=== PATIENT | female | born 1970 | race Caucasian/White ===

== ENCOUNTER 2018-08-20 15:11 | Inpatient (IN) | payer MEDICAID ==
[2018-08-20] MEDS ORDERED: Ondansetron 4 MG Tab.DIS PO PRN (16:34)
[2018-08-20] MEDS: Sodium Chloride 0.9% 10 ML Syringe FLUSH PRN (17:39)
[2018-08-20] MEDS: methylPREDNISolone Sodium Succinate 125 MG/2 ML SDV IVPUSH SCH (17:40)
[2018-08-20] MEDS: Lactated Ringers 1,000 ML IV SCH (17:41)
--- NOTE | 2018-08-20 17:41 | PCM.HP ---
<Brittani Arnett - Last Filed: 08/20/18 18:10> H&P History of Present Illness - General Admit Problem/Dx: Admission Diagnosis/Problem Admission Diagnosis/Problem Pneumonia Elizabeth is a 48yoF with history of emyphesema, chronic bronchitis, HTN, s/p gastric bypass (and previously diabetic before surgery), IBS, bipolar affective disorder who is admitted from clinic today for shortness of breath. Patient reports onset of dry cough, congestion, and dyspnea 3-4weeks ago. She was subsequently seen in clinic, at which time she was advised to finish her course of prednisone, continue with 10mg Singulair once daily, and starton Spiriva, 1 inhalation daily. Since then, her symptoms have continued to progressively worsen,particularly in the last week,now noting significant shortness of breath both at rest and with exertion. Associated symptoms include wheezing, myalgias, subjective fevers/chills, diaphoresis, intermittent periorbital headaches, sinus pressure, bilateral otalgia, sore throat, hoarseness, and rib pain secondary to coughing. She has been taking Tylenol and Sudafed with temporary relief.Patient does not feel her COPD is controlled at baseline as she typically becomes short of breath by 3-4pm each day. She is also out of rescue inhalers at home because she needs them more frequently than supplied by her insurance.She does not use supplemental oxygen at home.She is a current smoker, normally 1 ppd, down to 6 cigarettesa dayin past three days. Also has extensive passive smoke exposure at home from several family members. Additionally, patient reports feeling increasingly fatigued with difficulty concentrating, decreased sleep, and worsening anxiety and depressive episodes. No suicidal or homicidal ideations. She has a history of anxiety, bipolar disorder, depression, and PTSD. She is currently onCymbalta, Lyrica and Lorazepam. CXR in clinic does show evidence of infiltrate of right lower lung base and there is likely also infiltrate on the left side as well. Troponin and basic metabolic panel are within normal limits. BNP is pending. We checked a CBC on admission which showed a slight elevation of white count to 13.2. The patient does not have history of heart failure. Source of Information: Patient History Limitations: Reports: No Limitations - Related Data Allergies/Adverse Reactions: Allergies Allergy/AdvReac Type Severity Reaction Status Date / Time aspirin Allergy Difficulty Verified 08/20/18 18:46 Breathing cefaclor [From Ceclor] Allergy Hives Verified 07/12/18 15:24 clarithromycin [From Biaxin] Allergy Anaphylactic Verified 07/12/18 15:24 Shock fluticasone Allergy Hives Verified 07/12/18 15:23 [From Advair Diskus] ibuprofen Allergy Hives Verified 07/12/18 15:22 latex Allergy Hives Verified 07/12/18 15:22 morphine Allergy Hives Verified 08/20/18 18:46 salmeterol Allergy Hives Verified 07/12/18 15:23 [From Advair Diskus] Home Medications: Home Meds Budesonide/Formoterol Fumarate [Symbicort 160-4.5 Mcg Inhaler] 1 puff IH BID [History] Cyclobenzaprine [Flexeril] 10 mg PO TID 07/12/18 [History] LORazepam [Ativan] 1 mg PO BID 07/12/18 [History] Montelukast [Singulair] 10 mg PO DAILY 07/12/18 [History] Omeprazole 20 mg PO DAILY 07/12/18 [History] DULoxetine [Cymbalta] 30 mg PO DAILY 08/20/18 [History] Pregabalin [Lyrica] 150 mg PO BID 08/20/18 [History] Tiotropium [Spiriva Handihaler] 1 inhaler IH DAILY 08/20/18 [History] Past Medical History Cardiovascular History: Reports: High Cholesterol, Hypertension Respiratory History: Reports: Bronchitis, Recurrent, COPD Gastrointestinal History: Reports: Irritable Bowel Syndrome Psychiatric History: Reports: ADD, Bipolar - Past Surgical History GI Surgical History: Reports: Bariatric Procedure Social & Family History - Family History Family Medical History: Noncontributory - Tobacco Use Smoking Status *Q: Current Some Day Smoker Years of Tobacco use: 31 Packs/Tins Daily: 0.2 Used Tobacco, but Quit: No Month/Year Tobacco Last Used: aug 20 Second Hand Smoke Exposure: Yes - Caffeine Use Caffeine Use: Reports: Coffee, Energy Drinks - Recreational Drug Use Recreational Drug Use: No H&P Review of Systems - Review of Systems: General: Reports: Fever, Chills, Weakness, Fatigue HEENT: Reports: Headaches, Sinus Congestion, Sore Throat Pulmonary: Reports: Shortness of Breath, Wheezing, Cough, Sputum Cardiovascular: Reports: Dyspnea on Exertion Gastrointestinal: Reports: No Symptoms Genitourinary: Reports: No Symptoms Musculoskeletal: Reports: Muscle Pain Skin: Reports: No Symptoms Psychiatric: Reports: No Symptoms Neurological: Reports: No Symptoms Exam - Exam Exam: See Below - Vital Signs Vital Signs: Last Vital Signs Temp 36.6 C 08/20/18 16:08 Pulse 102 H 08/20/18 16:08 Resp 20 08/20/18 16:08 BP 119/81 08/20/18 16:08 Pulse Ox 85 L 08/20/18 16:16 Weight: 141 lb 14.4 oz - Exam Quality Assessment: Supplemental Oxygen, DVT Prophylaxis General: Alert, Oriented, Cooperative HEENT: PERRLA, Conjunctiva Clear Lungs: Decreased Breath Sounds, Rales, Wheezing Cardiovascular: Regular Rhythm, Normal S1, Normal S2, Tachycardia GI/Abdominal Exam: Normal Bowel Sounds, Soft Back Exam: Normal Inspection, Full Range of Motion Extremities: Normal Inspection, Normal Range of Motion, No Pedal Edema Peripheral Pulses: 1+: Radial (L), Radial (R) Skin: Warm Neuro Extensive - Mental Status: Alert, Oriented x3 Psychiatric: Alert, Normal Affect - Patient Data Lab Results Last 24 hrs: Laboratory Results - last 24 hr 08/20/18 08/20/18 Range/Units 16:55 16:55 WBC 13.2 H (4.5-12.0) X10-3/uL RBC 5.92 H (3.23-5.20) x10(6)uL Hgb 14.5 (11.5-15.5) g/dL Hct 45.8 (30.0-51.3) % MCV 77.3 L (80-96) fL MCH 24.6 L (27.7-33.6) pg MCHC 31.8 L (32.2-35.4) g/dL RDW 16.7 H (11.5-15.5) % Plt Count 331 (125-369) X10(3)uL MPV 7.9 (7.4-10.4) fL Neut % (Auto) 61.3 (46-82) % Lymph % (Auto) 27.4 (13-37) % [place] % (Auto) 10.0 (4-12) % Eos % (Auto) 1 (1.0-5.0) % Baso % (Auto) 1 (0-2) % Neut # (Auto) 8.1 (1.6-8.3) # Lymph # (Auto) 3.6 (0.6-5.0) # [place] # (Auto) 1.3 (0.0-1.3) # Eos # (Auto) 0.1 (0.0-0.8) # Baso # (Auto) 0.1 (0.0-0.2) # Sodium 140 (135-145) mmol/L Potassium 3.5 (3.5-5.3) mmol/L Chloride 103 (100-110) mmol/L Carbon Dioxide 31 (21-32) mmol/L BUN 8 (7-18) mg/dL Creatinine 0.7 (0.55-1.02) mg/dL Est Cr Clr Drug Dosing 86.52 mL/min Estimated GFR (MDRD) > 60 (>60) BUN/Creatinine Ratio 11.4 (9-20) Glucose 88 (80-116) mg/dL Calcium 8.9 (8.6-10.2) mg/dL Total Bilirubin 0.4 (0.1-1.3) mg/dL AST 21 (5-25) IU/L ALT 28 (12-36) U/L Alkaline Phosphatase 136 H (56-112) IU/L Total Protein 7.4 (6.0-8.0) g/dL Albumin 3.4 L (3.5-5.2) g/dL Globulin 4.0 g/dL Albumin/Globulin Ratio 0.9 Result Diagrams: 08/20/18 16:55 08/20/18 16:55 - Problem List (1) Acute on chronic respiratory failure with hypoxia SNOMED Code(s): 90446732, 600220582 ICD Code: J96.21 - ACUTE AND CHRONIC RESPIRATORY FAILURE WITH HYPOXIA Status: Acute Current Visit: Yes (2) Pneumonia SNOMED Code(s): 386357864 ICD Code: J18.9 - PNEUMONIA, UNSPECIFIED ORGANISM Status: Acute Current Visit: Yes (3) COPD exacerbation SNOMED Code(s): 950551935 ICD Code: J44.1 - CHRONIC OBSTRUCTIVE PULMONARY DISEASE W (ACUTE) EXACERBATION Status: Acute Current Visit: Yes (4) Hypertension SNOMED Code(s): 29493889 ICD Code: I10 - ESSENTIAL (PRIMARY) HYPERTENSION Status: Acute Current Visit: Yes (5) Emphysema of lung SNOMED Code(s): 46487737 ICD Code: J43.9 - EMPHYSEMA, UNSPECIFIED Status: Acute Current Visit: Yes (6) Irritable bowel syndrome (IBS) SNOMED Code(s): 17773597 ICD Code: K58.9 - IRRITABLE BOWEL SYNDROME WITHOUT DIARRHEA Status: Acute Current Visit: Yes (7) Hypoxemia SNOMED Code(s): 068866468 ICD Code: R09.02 - HYPOXEMIA Status: Acute Current Visit: No Problem List Initiated/Reviewed/Updated: Yes Orders Last 24hrs: Active Orders 24 hr Category Date Time Status Patient Status [ADT] Routine ADT 08/20/18 16:35 Active Oxygen Therapy [RC] ASDIRECTED Care 08/20/18 16:16 Active Oxygen Therapy [RC] PRN Care 08/20/18 16:35 Active RT Aerosol Therapy [RC] ASDIRECTED Care 08/20/18 16:39 Active Up ad Steffany [RC] ASDIRECTED Care 08/20/18 16:34 Active VTE/DVT Education [RC] Per Unit Routine Care 08/20/18 16:35 Active Vital Signs [RC] Q4H Care 08/20/18 16:35 Active Regular Diet [DIET] Diet 08/20/18 Dinner Active CULTURE BLOOD [BC] Urgent Lab 08/20/18 16:55 Received CULTURE BLOOD [BC] Urgent Lab 08/20/18 17:00 Received UA W/MICROSCOPIC [URIN] Routine Lab 08/20/18 16:34 Ordered Albuterol/Ipratropium [DuoNeb 3.0-0.5 MG/3 ML] Med 08/20/18 21:00 Active 3 ml NEB QIDRT Enoxaparin [Lovenox] Med 08/20/18 16:45 Pending 40 mg SUBCUT Q24H Lactated Ringers [Ringers, Lactated] 1,000 ml Med 08/20/18 16:45 Active IV ASDIRECTED Levofloxacin/Dextrose 5%-Water [Levaquin in D5W 750 MG/ Med 08/20/18 17:00 Active 150 ML] 750 mg Premix Bag 1 bag IV Q24H Sodium Chloride 0.9% [Saline Flush] Med 08/20/18 16:34 Active 10 ml FLUSH ASDIRECTED PRN methylPREDNISolone Sod Succ [Solu-MEDROL] Med 08/20/18 16:45 Active 125 mg IVPUSH Q12H Blood Culture x2 Reflex Set [OM.PC] Urgent Oth 08/20/18 16:34 Ordered Peripheral IV Insertion Adult [OM.PC] Routine Oth 08/20/18 16:34 Ordered Sequential Compression Device [OM.PC] Per Unit Routine Oth 08/20/18 16:36 Ordered Resuscitation Status Routine Resus Stat 08/20/18 16:34 Ordered Medication Orders Albuterol/Ipratropium (Duoneb 3.0-0.5 Mg/3 Ml) 3 ml NEB QIDRT [facility] Enoxaparin Sodium (Lovenox) 40 mg SUBCUT Q24H [facility] Lactated Ringer's (Ringers, Lactated) 1,000 mls @ 125 mls/hr IV ASDIRECTED [facility] Levofloxacin/Dextrose 750 mg/ (Premix) 150 mls @ 100 mls/hr IV Q24H [facility] Methylprednisolone Sodium Succinate (Solu-Medrol) 125 mg IVPUSH Q12H [facility] Sodium Chloride (Saline Flush) 10 ml FLUSH ASDIRECTED PRN PRN Reason: Keep Vein Open Assessment/Plan Comment:: 1. Admit to inpatient 2. We are treating this patient for COPD exacerbation as well as a bilateral community acquired pneumonia. We will treat her with IV levaquin, albuterol nebulization and IV steroids. Oxygen supplementation with nasal cannula and will wean as tolerated. She should use incentive spirometer. 3. EKG from clinic was reviewed and showed tachycardia but no evidence of ST elevation. Negative troponin. 4. Low clinical suspicion for PE 5. We will order some basic labs, blood cultures, urinalysis and also start the patient on IV fluids. We will test for influenza. 6. Up and ad steffany 7. DVT prophylaxis with Lovenox. Regular diet. <Macho Jack - Last Filed: 08/21/18 06:18> H&P History of Present Illness - General Date of Service: 08/20/18 Admit Problem/Dx: Admission Diagnosis/Problem Admission Diagnosis/Problem Pneumonia H&P Review of Systems - Review of Systems: Review Of Systems: See Below Exam - Exam Exam: See Below - Vital Signs Vital Signs: Last Vital Signs Temp 98.2 F 08/21/18 04:00 Pulse 84 08/21/18 04:00 Resp 18 08/21/18 04:00 BP 116/68 08/21/18 04:00 Pulse Ox 91 L 08/21/18 04:00 - Patient Data Lab Results Last 24 hrs: Laboratory Results - last 24 hr 08/20/18 08/20/18 08/20/18 Range/Units 16:55 16:55 19:00 WBC 13.2 H (4.5-12.0) X10-3/uL RBC 5.92 H (3.23-5.20) x10(6)uL Hgb 14.5 (11.5-15.5) g/dL Hct 45.8 (30.0-51.3) % MCV 77.3 L (80-96) fL MCH 24.6 L (27.7-33.6) pg MCHC 31.8 L (32.2-35.4) g/dL RDW 16.7 H (11.5-15.5) % Plt Count 331 (125-369) X10(3)uL MPV 7.9 (7.4-10.4) fL Neut % (Auto) 61.3 (46-82) % Lymph % (Auto) 27.4 (13-37) % [place] % (Auto) 10.0 (4-12) % Eos % (Auto) 1 (1.0-5.0) % Baso % (Auto) 1 (0-2) % Neut # (Auto) 8.1 (1.6-8.3) # Lymph # (Auto) 3.6 (0.6-5.0) # [place] # (Auto) 1.3 (0.0-1.3) # Eos # (Auto) 0.1 (0.0-0.8) # Baso # (Auto) 0.1 (0.0-0.2) # Sodium 140 (135-145) mmol/L Potassium 3.5 (3.5-5.3) mmol/L Chloride 103 (100-110) mmol/L Carbon Dioxide 31 (21-32) mmol/L BUN 8 (7-18) mg/dL Creatinine 0.7 (0.55-1.02) mg/dL Est Cr Clr Drug Dosing 86.52 mL/min Estimated GFR (MDRD) > 60 (>60) BUN/Creatinine Ratio 11.4 (9-20) Glucose 88 (80-116) mg/dL Calcium 8.9 (8.6-10.2) mg/dL Total Bilirubin 0.4 (0.1-1.3) mg/dL AST 21 (5-25) IU/L ALT 28 (12-36) U/L Alkaline Phosphatase 136 H (56-112) IU/L Total Protein 7.4 (6.0-8.0) g/dL Albumin 3.4 L (3.5-5.2) g/dL Globulin 4.0 g/dL Albumin/Globulin Ratio 0.9 Urine Color Yellow (YELLOW) Urine Appearance Clear (CLEAR) Urine pH 6.0 (5.0-6.5) Ur Specific [place] 1.010 (1.010-1.025) Urine Protein Negative (NEGATIVE) mg/dL Urine Glucose (UA) Normal (NEGATIVE) mg/dL Urine Ketones Negative (NEGATIVE) mg/dL Urine Occult Blood Negative (NEGATIVE) Urine Nitrite Negative (NEGATIVE) Urine Bilirubin Negative (NEGATIVE) Urine Urobilinogen 1 H (NEGATIVE) mg/dL Ur Leukocyte Esterase Small H (NEGATIVE) Urine RBC 0-5 (0) Urine WBC 10-20 H (0) Ur Squamous Epith Cells Moderate H (NS,R,O) Urine Bacteria Moderate H (NS) Result Diagrams: 08/20/18 16:55 08/20/18 16:55 Malcolm Results Last 24 hrs: Microbiology 08/20/18 22:10 Influenza Type A Antigen Screen - Final Nasal, Unspecified NEGATIVE INFLUENZA A VIRUS AG Influenza Type B Antigen Screen - Final NEGATIVE INFLUENZA B VIRUS AG - Problem List (1) Asthma SNOMED Code(s): 989174988 ICD Code: J45.909 - UNSPECIFIED ASTHMA, UNCOMPLICATED Status: Acute Current Visit: Yes (2) Palliative care status SNOMED Code(s): 491958275 ICD Code: Z51.5 - ENCOUNTER FOR PALLIATIVE CARE Status: Acute Current Visit: Yes (3) COPD exacerbation SNOMED Code(s): 043461210 ICD Code: J44.1 - CHRONIC OBSTRUCTIVE PULMONARY DISEASE W (ACUTE) EXACERBATION Status: Acute Current Visit: Yes (4) Pneumonia SNOMED Code(s): 824659558 ICD Code: J18.9 - PNEUMONIA, UNSPECIFIED ORGANISM Status: Acute Current Visit: Yes Problem List Initiated/Reviewed/Updated: Yes Orders Last 24hrs: Active Orders 24 hr Category Date Time Status Patient Status [ADT] Routine ADT 08/20/18 16:35 Active Oxygen Therapy [RC] ASDIRECTED Care 08/20/18 16:16 Active Oxygen Therapy [RC] PRN Care 08/20/18 16:35 Active RT Aerosol Therapy [RC] ASDIRECTED Care 08/20/18 16:39 Active RT Aerosol Therapy [RC] ASDIRECTED Care 08/20/18 21:03 Active Up ad Steffany [RC] ASDIRECTED Care 08/20/18 16:34 Active VTE/DVT Education [RC] Per Unit Routine Care 08/20/18 16:35 Active Vital Signs [RC] Q4H Care 08/20/18 16:35 Active Regular Diet [DIET] Diet 08/20/18 Dinner Active CULTURE BLOOD [BC] Urgent Lab 08/20/18 16:55 Received CULTURE BLOOD [BC] Urgent Lab 08/20/18 17:00 Received Acetaminophen [Tylenol Extra Strength] Med 08/20/18 22:33 Active 500 mg PO Q6H PRN Albuterol/Ipratropium [DuoNeb 3.0-0.5 MG/3 ML] Med 08/20/18 21:00 Active 3 ml NEB QIDRT Budesonide [Pulmicort] Med 08/20/18 21:00 Active 0.5 mg NEB BIDRT Enoxaparin [Lovenox] Med 08/20/18 18:00 Active 40 mg SUBCUT Q24H Lactated Ringers [Ringers, Lactated] 1,000 ml Med 08/20/18 16:45 Active IV ASDIRECTED Levofloxacin/Dextrose 5%-Water [Levaquin in D5W 750 MG/ Med 08/20/18 17:00 Active 150 ML] 750 mg Premix Bag 1 bag IV Q24H Pantoprazole [ProTONIX] Med 08/21/18 07:30 Active 40 mg PO ACBREAKFAST Sodium Chloride 0.9% [Saline Flush] Med 08/20/18 16:34 Active 10 ml FLUSH ASDIRECTED PRN methylPREDNISolone Sod Succ [Solu-MEDROL] Med 08/20/18 16:45 Active 125 mg IVPUSH Q12H Blood Culture x2 Reflex Set [OM.PC] Urgent Oth 02/06/19 16:34 Ordered Peripheral IV Insertion Adult [OM.PC] Routine Oth 08/20/18 16:34 Ordered Sequential Compression Device [OM.PC] Per Unit Routine Oth 08/20/18 16:36 Ordered Resuscitation Status Routine Resus Stat 08/20/18 16:34 Ordered Medication Orders Acetaminophen (Tylenol Extra Strength) 500 mg PO Q6H PRN PRN Reason: pain Last Admin: 08/20/18 23:30 Dose: 500 mg Albuterol/Ipratropium (Duoneb 3.0-0.5 Mg/3 Ml) 3 ml NEB QIDRT [facility] Last Admin: 08/20/18 21:11 Dose: 3 ml Budesonide (Pulmicort) 0.5 mg NEB BIDRT [facility] Last Admin: 08/20/18 21:22 Dose: 0.5 mg Enoxaparin Sodium (Lovenox) 40 mg SUBCUT Q24H [facility] Last Admin: 08/20/18 21:33 Dose: 40 mg Lactated Ringer's (Ringers, Lactated) 1,000 mls @ 125 mls/hr IV ASDIRECTED [facility] Last Admin: 08/21/18 03:09 Dose: 125 mls/hr Infusion: 08/21/18 01:41 Dose: 125 mls/hr Admin: 08/20/18 17:41 Dose: 125 mls/hr Levofloxacin/Dextrose 750 mg/ (Premix) 150 mls @ 100 mls/hr IV Q24H [facility] Last Admin: 08/20/18 17:48 Dose: 100 mls/hr Methylprednisolone Sodium Succinate (Solu-Medrol) 125 mg IVPUSH Q12H [facility] Last Admin: 08/21/18 04:27 Dose: 125 mg Admin: 08/20/18 17:40 Dose: 125 mg Pantoprazole Sodium (Protonix) 40 mg PO ACBREAKFAST [facility] Sodium Chloride (Saline Flush) 10 ml FLUSH ASDIRECTED PRN PRN Reason: Keep Vein Open Last Admin: 08/20/18 17:39 Dose: 10 ml Assessment/Plan Comment:: I have seen this patient with the resident and agree.
[2018-08-20] MEDS: Levofloxacin/Dextrose 5%-Water 750 MG in Premix Bag 1 BAG IV SCH (17:48)
[2018-08-20] MEDS ORDERED: LORazepam 1 MG Tab PO ONE (21:00)
[2018-08-20] MEDS ORDERED: Pregabalin 75 MG Cap PO ONE (21:00)
[2018-08-20] MEDS ORDERED: Gabapentin 400 MG Cap PO SCH (21:00)
[2018-08-20] MEDS: Albuterol/Ipratropium 3.0-0.5 MG/3 ML Neb Soln NEB SCH (21:11)
[2018-08-20] MEDS: Budesonide 0.5 MG/2 ML Neb Susp NEB SCH (21:22)
[2018-08-20] MEDS: Enoxaparin 40 MG/0.4 ML Syringe SUBCUT SCH (21:33)
[2018-08-20] MEDS ORDERED: Cyclobenzaprine 10 MG Tab PO ONE (22:33)
[2018-08-20] MEDS: Acetaminophen 500 MG Tab PO PRN (23:30)
[2018-08-21] MEDS: Lactated Ringers 1,000 ML IV SCH (03:09)
[2018-08-21] MEDS: methylPREDNISolone Sodium Succinate 125 MG/2 ML SDV IVPUSH SCH (04:27)
[2018-08-21] MEDS: Albuterol/Ipratropium 3.0-0.5 MG/3 ML Neb Soln NEB SCH ×4 (07:06→20:51)
[2018-08-21] MEDS: Budesonide 0.5 MG/2 ML Neb Susp NEB SCH ×2 (07:13→20:51)
[2018-08-21] MEDS: Pantoprazole 40 MG Tab.CR PO SCH (07:53)
--- NOTE | 2018-08-21 09:09 | PCM.PN ---
- General Info Date of Service: 08/21/18 Admission Dx/Problem (Free Text): Patient states her breathing is better as long as she has the oxygen on. She has a nonproductive cough. He denies fevers or chills or wheezing. - Patient Data Vitals - Most Recent: Last Vital Signs Temp 98.2 F 08/21/18 04:00 Pulse 84 08/21/18 04:00 Resp 18 08/21/18 04:00 BP 116/68 08/21/18 04:00 Pulse Ox 91 L 08/21/18 04:00 Weight - Most Recent: 141 lb 14.4 oz I&O - Last 24 Hours: Intake & Output 08/20/18 08/21/18 08/21/18 22:59 06:59 14:59 Intake Total 392 1020 Balance 392 1020 Lab Results Last 24 Hours: Laboratory Results - last 24 hr 08/20/18 08/20/18 08/20/18 Range/Units 16:55 16:55 19:00 WBC 13.2 H (4.5-12.0) X10-3/uL RBC 5.92 H (3.23-5.20) x10(6)uL Hgb 14.5 (11.5-15.5) g/dL Hct 45.8 (30.0-51.3) % MCV 77.3 L (80-96) fL MCH 24.6 L (27.7-33.6) pg MCHC 31.8 L (32.2-35.4) g/dL RDW 16.7 H (11.5-15.5) % Plt Count 331 (125-369) X10(3)uL MPV 7.9 (7.4-10.4) fL Neut % (Auto) 61.3 (46-82) % Lymph % (Auto) 27.4 (13-37) % [place] % (Auto) 10.0 (4-12) % Eos % (Auto) 1 (1.0-5.0) % Baso % (Auto) 1 (0-2) % Neut # (Auto) 8.1 (1.6-8.3) # Lymph # (Auto) 3.6 (0.6-5.0) # [place] # (Auto) 1.3 (0.0-1.3) # Eos # (Auto) 0.1 (0.0-0.8) # Baso # (Auto) 0.1 (0.0-0.2) # Sodium 140 (135-145) mmol/L Potassium 3.5 (3.5-5.3) mmol/L Chloride 103 (100-110) mmol/L Carbon Dioxide 31 (21-32) mmol/L BUN 8 (7-18) mg/dL Creatinine 0.7 (0.55-1.02) mg/dL Est Cr Clr Drug Dosing 86.52 mL/min Estimated GFR (MDRD) > 60 (>60) BUN/Creatinine Ratio 11.4 (9-20) Glucose 88 (80-116) mg/dL Calcium 8.9 (8.6-10.2) mg/dL Total Bilirubin 0.4 (0.1-1.3) mg/dL AST 21 (5-25) IU/L ALT 28 (12-36) U/L Alkaline Phosphatase 136 H (56-112) IU/L Total Protein 7.4 (6.0-8.0) g/dL Albumin 3.4 L (3.5-5.2) g/dL Globulin 4.0 g/dL Albumin/Globulin Ratio 0.9 Urine Color Yellow (YELLOW) Urine Appearance Clear (CLEAR) Urine pH 6.0 (5.0-6.5) Ur Specific [place] 1.010 (1.010-1.025) Urine Protein Negative (NEGATIVE) mg/dL Urine Glucose (UA) Normal (NEGATIVE) mg/dL Urine Ketones Negative (NEGATIVE) mg/dL Urine Occult Blood Negative (NEGATIVE) Urine Nitrite Negative (NEGATIVE) Urine Bilirubin Negative (NEGATIVE) Urine Urobilinogen 1 H (NEGATIVE) mg/dL Ur Leukocyte Esterase Small H (NEGATIVE) Urine RBC 0-5 (0) Urine WBC 10-20 H (0) Ur Squamous Epith Cells Moderate H (NS,R,O) Urine Bacteria Moderate H (NS) Malcolm Results Last 24 Hours: Microbiology 08/20/18 22:10 Influenza Type A Antigen Screen - Final Nasal, Unspecified NEGATIVE INFLUENZA A VIRUS AG Influenza Type B Antigen Screen - Final NEGATIVE INFLUENZA B VIRUS AG Med Orders - Current: Current Medications Acetaminophen (Tylenol Extra Strength) 500 mg PO Q6H PRN PRN Reason: pain Last Admin: 08/20/18 23:30 Dose: 500 mg Albuterol/Ipratropium (Duoneb 3.0-0.5 Mg/3 Ml) 3 ml NEB QIDRT [facility] Last Admin: 08/21/18 07:06 Dose: 3 ml Budesonide (Pulmicort) 0.5 mg NEB BIDRT [facility] Last Admin: 08/21/18 07:13 Dose: 0.5 mg Enoxaparin Sodium (Lovenox) 40 mg SUBCUT Q24H [facility] Last Admin: 08/20/18 21:33 Dose: 40 mg Lactated Ringer's (Ringers, Lactated) 1,000 mls @ 125 mls/hr IV ASDIRECTED [facility] Last Admin: 08/21/18 03:09 Dose: 125 mls/hr Levofloxacin/Dextrose 750 mg/ (Premix) 150 mls @ 100 mls/hr IV Q24H [facility] Last Admin: 08/20/18 17:48 Dose: 100 mls/hr Methylprednisolone Sodium Succinate (Solu-Medrol) 125 mg IVPUSH Q12H [facility] Last Admin: 08/21/18 04:27 Dose: 125 mg Pantoprazole Sodium (Protonix) 40 mg PO ACBREAKFAST [facility] Last Admin: 08/21/18 07:53 Dose: 40 mg Sodium Chloride (Saline Flush) 10 ml FLUSH ASDIRECTED PRN PRN Reason: Keep Vein Open Last Admin: 08/20/18 17:39 Dose: 10 ml Discontinued Medications Cyclobenzaprine HCl (Flexeril) 10 mg PO ONETIME ONE Stop: 08/20/18 22:34 Last Admin: 08/20/18 23:30 Dose: 10 mg Lorazepam (Ativan) 1 mg PO ONETIME ONE Stop: 08/20/18 21:01 Last Admin: 08/20/18 21:19 Dose: 1 mg Pregabalin (Lyrica) 150 mg PO ONETIME ONE Stop: 08/20/18 21:01 Last Admin: 08/20/18 21:19 Dose: 150 mg - Exam General: Alert, Oriented, Severe Distress Lungs: Clear to Auscultation, Decreased Breath Sounds (Right base). No: Crackles, Rales, Rhonchi, Wheezing Cardiovascular: Regular Rate, Regular Rhythm, No Murmurs Extremities: No Pedal Edema - Problem List & Annotations (1) Asthma SNOMED Code(s): 850362622 Code(s): J45.909 - UNSPECIFIED ASTHMA, UNCOMPLICATED Status: Acute Current Visit: Yes (2) Palliative care status SNOMED Code(s): 476154321 Code(s): Z51.5 - ENCOUNTER FOR PALLIATIVE CARE Status: Acute Current Visit: Yes (3) COPD exacerbation SNOMED Code(s): 529098075 Code(s): J44.1 - CHRONIC OBSTRUCTIVE PULMONARY DISEASE W (ACUTE) EXACERBATION Status: Acute Current Visit: Yes (4) Pneumonia SNOMED Code(s): 131262203 Code(s): J18.9 - PNEUMONIA, UNSPECIFIED ORGANISM Status: Acute Current Visit: Yes (5) Smoking SNOMED Code(s): 50407476 Code(s): F17.200 - NICOTINE DEPENDENCE, UNSPECIFIED, UNCOMPLICATED Status: Acute Current Visit: Yes - Problem List Review Problem List Initiated/Reviewed/Updated: Yes - My Orders Last 24 Hours: My Active Orders 08/20/18 16:16 Oxygen Therapy [RC] ASDIRECTED 08/20/18 16:34 Up ad Risa [RC] ASDIRECTED Sodium Chloride 0.9% [Saline Flush] 10 ml FLUSH ASDIRECTED PRN Blood Culture x2 Reflex Set [OM.PC] Urgent Peripheral IV Insertion Adult [OM.PC] Routine Resuscitation Status Routine 08/20/18 16:35 Patient Status [ADT] Routine Oxygen Therapy [RC] PRN VTE/DVT Education [RC] Per Unit Routine Vital Signs [RC] Q4H 08/20/18 16:36 Sequential Compression Device [OM.PC] Per Unit Routine 08/20/18 16:39 RT Aerosol Therapy [RC] ASDIRECTED 08/20/18 16:45 Lactated Ringers [Ringers, Lactated] 1,000 ml IV ASDIRECTED methylPREDNISolone Sod Succ [Solu-MEDROL] 125 mg IVPUSH Q12H 08/20/18 16:55 CULTURE BLOOD [BC] Urgent 08/20/18 17:00 CULTURE BLOOD [BC] Urgent Levofloxacin/Dextrose 5%-Water [Levaquin in D5W 750 MG/150 ML] 750 mg Premix Bag 1 bag IV Q24H 08/20/18 18:00 Enoxaparin [Lovenox] 40 mg SUBCUT Q24H 08/20/18 21:00 Albuterol/Ipratropium [DuoNeb 3.0-0.5 MG/3 ML] 3 ml NEB QIDRT 08/20/18 Dinner Regular Diet [DIET] 08/21/18 07:14 IS (RT) [RT Incentive Spirometry] [RC] ASDIRECTED - Plan Plan:: 1. Decrease the Solu-Medrol 125 mg every 24 hours. 2. Continue antibiotics as previously prescribed. 3. Continue O2 nasal cannula. 4. Patient is okay with trying NicoDerm patch. 5. DC IV fluids and saline lock IV. 6. Frequent ambulation and up in the chair.
[2018-08-21] MEDS ORDERED: Albuterol/Ipratropium 3.0-0.5 MG/3 ML Neb Soln INH PRN (09:10)
[2018-08-21] MEDS ORDERED: Pantoprazole 40 MG Tab.CR PO PRN (10:30)
[2018-08-21] MEDS: Nicotine 21 MG/24 Hr Patch TRDERM SCH (10:30)
[2018-08-21] MEDS: LORazepam 0.5 MG Tab PO SCH ×2 (10:31→20:50)
[2018-08-21] MEDS: Acetaminophen 500 MG Tab PO PRN (10:32)
[2018-08-21] MEDS: Sodium Chloride 0.9% 10 ML Syringe FLUSH PRN ×3 (10:35→16:38)
[2018-08-21] MEDS: DULoxetine 30 MG Cap PO SCH (10:52)
[2018-08-21] MEDS: Pregabalin 75 MG Cap PO SCH ×2 (10:52→20:51)
[2018-08-21] MEDS: Cyclobenzaprine 10 MG Tab PO PRN ×2 (10:52→18:35)
[2018-08-21] MEDS ORDERED: methylPREDNISolone Sodium Succinate 125 MG/2 ML SDV IVPUSH SCH (16:00)
[2018-08-21] MEDS: Levofloxacin/Dextrose 5%-Water 750 MG in Premix Bag 1 BAG IV SCH (16:37)
[2018-08-21] MEDS: Enoxaparin 40 MG/0.4 ML Syringe SUBCUT SCH (18:35)
[2018-08-21] MEDS ORDERED: Montelukast 10 MG Tab PO SCH (21:00)
[2018-08-22] MEDS: Albuterol/Ipratropium 3.0-0.5 MG/3 ML Neb Soln NEB SCH ×3 (07:59→15:02)
[2018-08-22] MEDS: Pantoprazole 40 MG Tab.CR PO SCH (07:59)
[2018-08-22] MEDS: Budesonide 0.5 MG/2 ML Neb Susp NEB SCH (08:09)
[2018-08-22] MEDS: LORazepam 0.5 MG Tab PO SCH (09:29)
[2018-08-22] MEDS: DULoxetine 30 MG Cap PO SCH (09:30)
[2018-08-22] MEDS: Nicotine 21 MG/24 Hr Patch TRDERM SCH (09:30)
[2018-08-22] MEDS: Pregabalin 75 MG Cap PO SCH (09:30)
[2018-08-22] MEDS ORDERED: Pneumococcal Polyvalent-23 Vaccine 0.5 ML SDV IM ONE (10:09)
[2018-08-22] MEDS ORDERED: Nicotine Polacrilex 2 MG Loz Box CHEW PRN (11:08)
--- NOTE | 2018-08-22 11:22 | PCM.DCSUM1 ---
Discharge Summary - Hospital Course Free Text/Narrative:: Date of admission: 08/20/18 Date of discharge: 08/22/18 Admission diagnosis: COPD exacerbation, bibasilar pneumonia. Discharge diagnosis: Same. Consults: None Procedures: Chest x-ray done at the clinic on the day of admission showed suggestion of minimal pneumonia possibly with minimal pruritus at the right lung base laterally. COPD. History of present illness: The patient is a 48-year-old female with a long-standing history of COPD and chronic bronchitis. She had had increasing cough with congestion and dyspnea for about 3-4 weeks prior to presenting to the clinic with increasing shortness of breath, wheezing, fevers and chills. On presentation oxygen saturations at rest were 88% on room air, heart rate 120. Patient was visibly dyspneic with rest. She was advised to present to the hospital for further evaluation and treatment and was admitted by Dr. Jack. Hospital course: Patient did well throughout hospitalization. She was started on IV Solu-Medrol and IV Levaquin and tolerated this well. Fevers and chills resolved. Wheezing resolved. Shortness of breath improved the patient was still hypoxic with ambulation with a sats in the mid 80s on room air. On the day of discharge she was eager to discharge home and discussed some preventative measures that she could use to prevent readmission such as not smoking, avoiding cold air, and following up as directed. See condition on the day of discharge below. - Discharge Data Discharge Date: 08/22/18 Discharge Disposition: Home, W Home Health Agency 06 Condition: Good - Discharge Diagnosis/Problem(s) (1) COPD exacerbation SNOMED Code(s): 908119238 ICD Code: J44.1 - CHRONIC OBSTRUCTIVE PULMONARY DISEASE W (ACUTE) EXACERBATION Status: Acute Current Visit: Yes Problem Details: Patient currently on hospital day #3. She feels that her symptoms have significantly improved but she continues to be hypoxic on room air with O2 sats at 86% with activity with no oxygen. If we can get the patient set up for home oxygen she could discharge home this afternoon. Did stress the importance of no smoking and she would like nicotine replacement products ordered. Recommended she use her DuoNeb 4 times a day and when necessary at night until she sees Dr. Starr in follow-up. (2) Hypertension SNOMED Code(s): 32532759 ICD Code: I10 - ESSENTIAL (PRIMARY) HYPERTENSION Status: Acute Current Visit: Yes Problem Details: Well-controlled on no medication. (3) Smoking SNOMED Code(s): 27434498 ICD Code: F17.200 - NICOTINE DEPENDENCE, UNSPECIFIED, UNCOMPLICATED Status : Acute Current Visit: Yes Problem Details: Discussed cessation at length. (4) S/P gastric bypass SNOMED Code(s): 880466702, 421454883, 305631944, 704754654 ICD Code: Z98.84 - BARIATRIC SURGERY STATUS Status: Acute Current Visit: Yes Problem Details: Did discuss being checked outpatient for vitamin or mineral deficiencies associated with gastric bypass. - Patient Instructions Diet: Heart Healthy Diet Other/Special Instructions: You were admitted to the hospital because your lungs were inflamed and we think you had a little pneumonia. You will need to use oxygen until your lungs have healed. You will take 3 more days of antibiotic therapy. You will take this at 5 PM every evening. You can use your DuoNeb's 4 times a day and if you wake up at night short of breath, you can use it then. You will be on prednisone 40 mg daily until you see Dr. Starr back next week for follow-up. Please schedule an appointment with him for midweek. He will need to decrease your prednisone at that time. Smoking right now will greatly increase your chances of ending up back in the hospital. I have sent a prescription through to the pharmacy for patches and lozenges for you to use instead. You will need in 4-[address] with Dr[address] Starr about reducing the dose of the patch. Patient to discharge with home health. Was seen face-to- face on the day of discharge for COPD exacerbation. Home care services will be for management of shortness of breath and oxygen. Patient is homebound. Will need portable oxygen as well. Length of service will likely be lifetime. - Discharge Plan Prescriptions/Med Rec: Albuterol/Ipratropium [DuoNeb 3.0-0.5 MG/3 ML] 3 ml IH QID #100 neb Levofloxacin [Levaquin] 750 mg PO QPM #3 tablet Nicotine [Habitrol] 21 mg TRDERM DAILY #30 patch Nicotine Polacrilex [Commit] 2 mg CHEW Q1H PRN #1 box PRN Reason: tobacco abuse predniSONE 40 mg PO WITHBREAKFAST #30 tablet Home Medications: Home Meds Budesonide/Formoterol Fumarate [Symbicort 160-4.5 Mcg Inhaler] 2 puff IH BID [History] Cyclobenzaprine [Flexeril] 10 mg PO TID PRN 07/12/18 [History] LORazepam [Ativan] 0.5 mg PO BID 07/12/18 [History] Montelukast [Singulair] 10 mg PO BEDTIME 07/12/18 [History] DULoxetine [Cymbalta] 30 mg PO DAILY 08/20/18 [History] Pregabalin [Lyrica] 150 mg PO BID 08/20/18 [History] Tiotropium [Spiriva Handihaler] 18 mcg IH DAILY 08/20/18 [History] Omeprazole 40 mg PO DAILY 08/21/18 [History] Omeprazole 40 mg PO DAILY PRN 08/21/18 [History] rOPINIRole [Requip] 2 - 4 mg PO BEDTIME PRN 08/21/18 [History] Albuterol/Ipratropium [DuoNeb 3.0-0.5 MG/3 ML] 3 ml IH QID #100 neb 08/22/18 [Rx ] Levofloxacin [Levaquin] 750 mg PO QPM #3 tablet 08/22/18 [Rx] Nicotine Polacrilex [Commit] 2 mg CHEW Q1H PRN #1 box 08/22/18 [Rx] Nicotine [Habitrol] 21 mg TRDERM DAILY #30 patch 08/22/18 [Rx] predniSONE 40 mg PO WITHBREAKFAST #30 tablet 08/22/18 [Rx] Patient Handouts: Steps to Quit Smoking, [id number], Secondhand Smoke, Steps to Quit Smoking - Discharge Summary/Plan Comment DC Time >30 min.: Yes - General Info Date of Service: 08/22/18 Subjective Update: Patient is a 48-year-old female currently on hospital day #3 for COPD exacerbation/pneumonia. Much improved. Feels ready for discharge as long as she can have home oxygen set up at home. Cough is diminished significantly. She's no longer wheezing. She no longer feels short of breath at rest but does feel short of breath when she gets up and ambulates without the oxygen. No chest pain, no bowel concerns. - Patient Data Vitals - Most Recent: Last Vital Signs Temp 37.1 C 08/22/18 00:00 Pulse 112 H 08/22/18 11:12 Resp 20 08/22/18 00:00 BP 106/71 08/22/18 00:00 Pulse Ox 92 L 08/22/18 11:14 Weight - Most Recent: 64.365 kg LINDA Results - Last 24 hrs: Microbiology 08/20/18 16:55 Aerobic Blood Culture - Preliminary Blood - Venous NO GROWTH AFTER 1 DAY Anaerobic Blood Culture - Preliminary NO GROWTH AFTER 1 DAY 08/20/18 17:00 Aerobic Blood Culture - Preliminary Blood - Venous - Lab Draw NO GROWTH AFTER 1 DAY Anaerobic Blood Culture - Preliminary NO GROWTH AFTER 1 DAY Med Orders - Current: Current Medications Acetaminophen (Tylenol Extra Strength) 500 mg PO Q6H PRN PRN Reason: pain Last Admin: 08/21/18 10:32 Dose: 500 mg Albuterol/Ipratropium (Duoneb 3.0-0.5 Mg/3 Ml) 3 ml NEB QIDRT [facility] Last Admin: 08/22/18 11:10 Dose: 3 ml Albuterol/Ipratropium (Duoneb 3.0-0.5 Mg/3 Ml) 3 ml INH QID PRN PRN Reason: Shortness of Breath Budesonide (Pulmicort) 0.5 mg NEB BIDRT [facility] Last Admin: 08/22/18 08:09 Dose: 0.5 mg Cyclobenzaprine HCl (Flexeril) 10 mg PO TID PRN PRN Reason: muscle spasms Last Admin: 08/21/18 18:35 Dose: 10 mg Duloxetine HCl (Cymbalta) 30 mg PO DAILY [facility] Last Admin: 08/22/18 09:30 Dose: 30 mg Enoxaparin Sodium (Lovenox) 40 mg SUBCUT Q24H [facility] Last Admin: 08/21/18 18:35 Dose: 40 mg Levofloxacin/Dextrose 750 mg/ (Premix) 150 mls @ 100 mls/hr IV Q24H [facility] Last Admin: 08/21/18 16:37 Dose: 100 mls/hr Lorazepam (Ativan) 0.5 mg PO BID [facility] Last Admin: 08/22/18 09:29 Dose: 0.5 mg Methylprednisolone Sodium Succinate (Solu-Medrol) 125 mg IVPUSH Q24H [facility] Last Admin: 08/21/18 16:31 Dose: 125 mg Montelukast Sodium (Singulair) 10 mg PO BEDTIME [facility] Last Admin: 08/21/18 20:51 Dose: 10 mg Nicotine (Habitrol) 21 mg TRDERM DAILY [facility] Last Admin: 08/22/18 09:30 Dose: 21 mg Nicotine Polacrilex (Commit) 2 mg CHEW Q1H PRN PRN Reason: tobacco abuse Pantoprazole Sodium (Protonix) 40 mg PO ACBREAKFAST [facility] Last Admin: 08/22/18 07:59 Dose: 40 mg Pantoprazole Sodium (Protonix) 40 mg PO DAILY PRN PRN Reason: HEARTBURN Prednisone (Prednisone) 40 mg PO WITHBREAKFAST [facility] Pregabalin (Lyrica) 150 mg PO BID [facility] Last Admin: 08/22/18 09:30 Dose: 150 mg Sodium Chloride (Saline Flush) 10 ml FLUSH ASDIRECTED PRN PRN Reason: Keep Vein Open Last Admin: 08/21/18 16:38 Dose: 10 ml Discontinued Medications Cyclobenzaprine HCl (Flexeril) 10 mg PO ONETIME ONE Stop: 08/20/18 22:34 Last Admin: 08/20/18 23:30 Dose: 10 mg Lactated Ringer's (Ringers, Lactated) 1,000 mls @ 125 mls/hr IV ASDIRECTED [facility] Last Admin: 08/21/18 03:09 Dose: 125 mls/hr Influenza Virus Vaccine (Fluzone Quad [id number] Syringe) 60 mcg IM .ONCE ONE Stop: 08/22/18 10:16 Lorazepam (Ativan) 1 mg PO ONETIME ONE Stop: 08/20/18 21:01 Last Admin: 08/20/18 21:19 Dose: 1 mg Methylprednisolone Sodium Succinate (Solu-Medrol) 125 mg IVPUSH Q12H [facility] Last Admin: 08/21/18 04:27 Dose: 125 mg Pneumococcal Polyvalent Vaccine (Pneumovax 23) 0.5 ml IM .ONCE ONE Stop: 08/22/18 10:10 Pregabalin (Lyrica) 150 mg PO ONETIME ONE Stop: 08/20/18 21:01 Last Admin: 08/20/18 21:19 Dose: 150 mg - Exam General: Reports: Alert, Oriented, Cooperative, No Acute Distress HEENT: Reports: Pupils Equal, Pupils Reactive Neck: Reports: Supple Lungs: Reports: Clear to Auscultation, Decreased Breath Sounds. Denies: Crackles, Rhonchi, Wheezing Cardiovascular: Reports: Regular Rate, Regular Rhythm, No Murmurs GI/Abdominal Exam: Normal Bowel Sounds, Soft, Non-Tender, No Distention Extremities: No Pedal Edema Psy/Mental Status: Reports: Alert, Normal Affect, Normal Mood
[2018-08-22] MEDS ORDERED: predniSONE 20 MG Tab PO SCH (12:00)
== END 2018-08-22 16:07 | disposition home health service (06) | DRG 190 ==
LOC: FB.MS 15:55
PROVIDERS: ADMIT Family Medicine; ATTEND Family Medicine
PROC: 3E0234Z Introduction of Serum, Toxoid and Vaccine into Muscle, Percutaneous Approach (ICD-10-PCS; principal; 2018-08-22)
PROC: 3E02340 Introduction of Influenza Vaccine into Muscle, Percutaneous Approach (ICD-10-PCS; 2018-08-22)
DX: J44.0 Chronic obstructive pulmonary disease with (acute) lower respiratory infection (principal); J18.9 Pneumonia, unspecified organism; J96.21 Acute and chronic respiratory failure with hypoxia; F17.210 Nicotine dependence, cigarettes, uncomplicated; J44.1 Chronic obstructive pulmonary disease with (acute) exacerbation; Z51.5 Encounter for palliative care; Z99.81 Dependence on supplemental oxygen; Z98.84 Bariatric surgery status; F41.9 Anxiety disorder, unspecified; F43.10 Post-traumatic stress disorder, unspecified; K58.9 Irritable bowel syndrome, unspecified; Z23 Encounter for immunization; F31.9 Bipolar disorder, unspecified; I10 Essential (primary) hypertension; Z86.39 Personal history of other endocrine, nutritional and metabolic disease; Z79.52 Long term (current) use of systemic steroids; Z88.1 Allergy status to other antibiotic agents; Z91.040 Latex allergy status; Z88.5 Allergy status to narcotic agent; Z88.8 Allergy status to other drugs, medicaments and biological substances
CPT/HCPCS: 36415; 80053; 81001; 85025; 87040; 87804; 87804-59; 90686; 90732; 94150; 94640; A9270-GY; G0008; G0009; J1650; J1956; J2930; J7120; J7620-GY

== ENCOUNTER 2023-11-10 00:02 | Emergency (ER) | payer MEDICAID ==
[2023-11-10] MEDS ORDERED: Sodium Chloride 0.9% 10 ML Syringe FLUSH PRN (00:15)
[2023-11-10] MEDS: Albuterol/Ipratropium 3.0-0.5 MG/3 ML Neb Soln NEB ONE (00:33)
[2023-11-10] MEDS: methylPREDNISolone Sodium Succinate 125 MG/2 ML SDV IVPUSH ONE (00:33)
[2023-11-10 00:37] LABS: BASE EXCESS VENOUS,POC 6 mmol/L (-2 - 3+); PCO2 VENOUS,POC 56 mmHg (41-51); PH VENOUS,POC 7.38 pH Units (7.32-7.43)
[2023-11-10 00:43] LABS: BLOOD UREA NITROGEN,BUN 13 mg/dL (7-18); BUN/CREATININE RATIO 21.7 (9-20); CALCIUM 8.6 mg/dL (8.6-10.2); CARBON DIOXIDE,CO2 33 mmol/L (21-32); CHLORIDE,CL 105 mmol/L (100-110); CREATININE 0.6 mg/dL (0.55-1.02); EST CRCL DRUG DOSING (CG) 91.48 mL/min; ESTIMATED GFR 106 mL/min (>60); GLUCOSE RANDOM 114 mg/dL (80-116); POTASSIUM,K 3.9 mmol/L (3.5-5.3); SODIUM,NA 144 mmol/L (135-145)
[2023-11-10 00:46] LABS: BASOPHILS PERCENT AUTO 0.2 % (0.2-1.5); HEMOGLOBIN 17.3 g/dL (11.4-15.5); MONOCYTES ABSOLUTE AUTO 1.4 x10-3/uL (0.3-1.0)
[2023-11-10 00:48] LABS: ALANINE AMINOTRANSFERASE,ALT 70 U/L (12-36); ALBUMIN 3.1 g/dL (3.5-5.2); ALKALINE PHOSPHATASE 112 IU/L (56-112); ASPARTATE AMNIOTRANSFERASE,AST 61 IU/L (5-25); BILIRUBIN TOTAL 0.5 mg/dL (0.1-1.3); PROTEIN TOTAL,TP 6.3 g/dL (6.0-8.0)
[2023-11-10 01:05] LABS: EOSINOPHILS PERCENT AUTO 0.3 % (0.6-8.1); HEMATOCRIT 53.1 % (34.2-48.2); LYMPHOCYTES ABSOLUTE AUTO 1.9 x10-3/uL (1.0-4.4); MEAN CORPUSCULAR HEMOGLOBIN 32.1 pg (23.9-33.9); MEAN CORPUSCULAR HGB CONC 32.7 g/dL (31.9-34.8); MEAN CORPUSCULAR VOLUME 98.3 fL (76.7-100.5); MEAN PLATELET VOLUME 8.6 fL (7.1-12.4); MONOCYTES PERCENT AUTO 9.9 % (4.4-15.7); NEUTROPHILS ABSOLUTE AUTO 10.5 x10-3/uL (1.5-6.3); NEUTROPHILS PERCENT AUTO 75.6 % (30.8-76.2); PLATELET COUNT,PLT 204 x10(3)uL (151-488); RED CELL DISTRIBUTION WIDTH 15.1 % (12.3-16.5); WHITE BLOOD CELL COUNT,WBC 13.9 x10-3/uL (3.0-10.3)
[2023-11-10 01:57] LABS: INFLUENZA A NAA NEGATIVE (NEGATIVE); INFLUENZA B NAA NEGATIVE (NEGATIVE); RESPIRATORY SYNCYTIAL VIR NAA NEGATIVE (NEGATIVE)
[2023-11-10 02:14] LABS: BASE EXCESS ARTERIAL,POC 2 mmol/L (-2 - 3+); HCO3 ARTERIAL,POC 27 mmol/L (21-28); O2 SATURATION ARTERIAL,POC 94.3 % (94-98); PO2 ARTERIAL,POC 71 mmHg (83-108)
[2023-11-10 02:23] LABS: CORONAVIRUS COVID-19 NAA NEGATIVE (NEGATIVE)
[2023-11-10] MEDS: Levofloxacin/Dextrose 5%-Water 750 MG in Premix Bag 1 BAG IV ONE (03:00)
== END 2023-11-10 03:20 ==
LOC: FB.ED 00:02
DX: J44.1 Chronic obstructive pulmonary disease with (acute) exacerbation (principal); F17.200 Nicotine dependence, unspecified, uncomplicated; E78.00 Pure hypercholesterolemia, unspecified; I10 Essential (primary) hypertension; E11.9 Type 2 diabetes mellitus without complications; Z88.6 Allergy status to analgesic agent; Z91.040 Latex allergy status; Z88.5 Allergy status to narcotic agent; Z88.8 Allergy status to other drugs, medicaments and biological substances; Z88.1 Allergy status to other antibiotic agents; Z79.899 Other long term (current) drug therapy; Z86.19 Personal history of other infectious and parasitic diseases; Z98.84 Bariatric surgery status
CPT/HCPCS: 0241U; 36415; 71250; 80053; 82803; 83880; 84484; 85025; 86140; 87040; 93005; 93010; 96374; 96375; 99285; 99285-25; J1956; J2930; J7620